=== PATIENT | male | born 1995 | race African-American/Black ===

== ENCOUNTER 2020-04-15 03:03 | Emergency (ER) | payer OTHER ==
[~2020-04-15] VITALS: Ht 188 cm; Wt 86.2 kg
[2020-04-15 03:15] VITALS: BP 131/86
[2020-04-15] MEDS ORDERED: COLACE100 MG ORAL (03:38)
[2020-04-15] MEDS ORDERED: IBUPROFEN600 M1 ORAL (03:38)
[2020-04-15] MEDS ORDERED: ANUSOL-HC25 MG RECTAL (03:38)
[2020-04-15 03:42] VITALS: BP 129/86
--- NOTE | 2020-04-15 04:27 | Emergency Room Report ---
History of Present Illness General Chief Complaint: Male Urogenital Problems Source: Patient Present Illness HPI 24-year-old bisexual -[place] male presents with anal discomfort x1 week. States his anus hurts when he sits down or tries to go to the bathroom. Patient states that the last time he was sexually active was a week and a half ago with anal intercourse. He does not have any concern for sexually transmitted infection and is currently sexually monogamous with 1 partner. He is inconsistent with his condom use. Denies melena, hematochezia, nausea, vomiting, back pain, diarrhea, saddle anesthesia, or other complaints. Denies dysuria, hematuria, penile discharge, or testicular pain. The patient's symptoms were gradual onset, severity was moderate, duration since 7 days Quality: aching Past medical history: Denies Past surgical history: Denies Smoking: ++ Alcohol use: Denies Drug use: Denies Review of systems: CONST: No fevers or chills, No night sweats PULMONARY: No productive cough, No shortness of breath CARDIAC: No chest pain, No palpitations GI: No vomiting, No diarrhea , No melena_or_BRBPR : No dysuria, No hematuria, No discharge NEURO: No new_focal_weakness_or_numbness, No confusion, No vision changes 14 point Review of Systems is otherwise negative except per HPI Physical Exam: GENERAL: Awake_alert_ nontoxic, no acute distress Spo2 98% on RA -normal EYES: Extraocular muscles are intact. Conjunctivae clear. Lids without swelling ENT: External nose and ear normal_in_appearance. Oropharynx clear. Head_ atraumatic, Moist_oral_mucosa NECK: No JVD. No meningismus. No thyromegaly. Supple. Trachea midline RESP: Normal respiratory effort. Symmetric rise. No stridor. Clear_to_auscultation_No_rales_No_wheezes CARDIAC: Regular rate and regular rhytm. No_significant pedal edema. ABDOMEN: Soft. Nondistended. Nontender_No_rebound_or_guarding. Rectal: External nonthrombosed hemorrhoid at the 5 o'clock position. No anal fissure. No internal masses Normal tone and sensation, light brown stool, no melena or blood. Chaperoned with nurse at bedside MSK: Normal muscle tone, without rigidity. Extremities without asymmetric deformity or swelling. SKIN: Warm and dry. No visible cyanosis or pallor NEUROLOGIC: Alert, oriented x3. Motor_and_sensation_grossly_intact. No truncal ataxia. Gait_normal Psych: Normal mood and affect, normal judgment and insight - COORDINATION OF CARE Case was discussed with: Patient Medical Decision Making/Plan: Differential diagnosis: Hemorrhoids versus anal fissure versus anal tear versus mass patient is a well-appearing healthy 24-year-old male here with rectal pain for the past 1 week. Examination is consistent with nonthrombosed uncomplicated external hemorrhoid He denies concern for sexually transmitted infection. Denies empiric testing/treatment. We will discharge with Anusol, Colace, and NSAID. Pertinent results reviewed with the patient. Recommend against anal intercourse until hemorrhoid resolves. I educated the patient on the current treatment plan including the risks, benefits, and alternatives. I also discussed the extent and limitations of the current evaluation. The patient expressed understanding and agreement with plan. I recommended PMD follow-up within 1-2 days. Also advised that the patient re turn to the Emergency Department as soon as possible if they experience any new, persistent, or worsening symptoms. Allergies: Coded Allergies: No Known Allergies (Unverified , 04/15/20) COVID-19 Screening Contact w/high risk pt: No Experienced COVID-19 symptoms?: No COVID-19 Testing performed RECLAIMER: No Nursing Documentation-PMH Past Medical History: No Stated History Physical Exam Vital Signs Date Time Temp Pulse Resp B/P (MAP) Pulse Ox O2 Delivery O2 Flow Rate FiO2 04/15/20 03:05 97.3 96 22 131/86 (101) 04/15/20 03:15 98 Room Air Medical Decision Making Diagnostic Impression: Primary Impression: External hemorrhoids without complication Last Vital Signs Date Time Temp Pulse Resp B/P (MAP) Pulse Ox O2 Delivery O2 Flow Rate FiO2 04/15/20 03:42 97.3 91 16 129/86 98 Room Air Disposition: HOME, SELF-CARE Admit Decision Time: 04:00 Condition: Stable Scripts Ibuprofen* (MOTRIN*) 600 Mg Tablet 600 MG ORAL Q6H PRN for FOR PAIN, #20 TAB 0 Refills Prov: Lubna Bliss D.O. 04/15/20 Docusate Sodium* (COLACE*) 100 Mg Capsule 100 MG ORAL THREE TIMES A DAY for 7 Days, #21 CAP Prov: Lubna Bliss D.O. 04/15/20 Hydrocortisone Acetate* (ANUSOL-HC*) 25 Mg Supp.rect 1 SUPP RECTAL TWICE A DAY for 7 Days, #50 SUPP Prov: Lubna Bliss D.O. 04/15/20 Referrals: [facility]. [facility] Patient Instructions: How to Take a Sitz Bath, Hemorrhoids, [id number] Additional Instructions: Instructions for patient/networking technician: Follow up with your physician in 1-2 days. No anal intercourse until your hemorrhoid resolves. Take sitz bath as you have been doing. Eat high-fiber diet Follow-up with your doctor sooner if your condition requires a more timely clinical reevaluation. Return to the emergency department immediately if you feel that your condition is worsening or if you have any new or concerning symptoms. Review your discharge instructions and take any prescriptions given as instructed. [facility] PROVIDES FREE OR LOW-COST HEALTH SERVICES TO PEOPLE WHO CAN SHOW PROOF THAT THEY LIVE IN [facility]. TO FIND MORE CLINICS PARTNERED WITH [facility] TO PROVIDE SERVICE, PLEASE CALL . Lubna Bliss D.O. Apr 15, 2020 04:27
== END 2020-04-15 03:42 | disposition home or self-care (01) ==
LOC: EMR 03:21
DX: K64.4 Residual hemorrhoidal skin tags (principal)
CPT/HCPCS: 99282

== ENCOUNTER 2020-05-18 11:46 | Emergency (ER) | payer OTHER ==
[~2020-05-18] VITALS: Ht 188 cm; Wt 81.6 kg
[~2020-05-18 11:46] MED LIST: ANUSOL-HC25 MG RECTAL; COLACE100 MG ORAL; IBUPROFEN600 M1 ORAL
[2020-05-18 12:04] VITALS: BP 137/89
[2020-05-18 12:10] VITALS: BP 140/84
[2020-05-18] MEDS ORDERED: LOPERAMIDE2 M1 PO (12:14)
--- NOTE | 2020-05-18 12:14 | Emergency Room Report ---
History of Present Illness General Chief Complaint: Abdominal Pain Source: Patient Present Illness HPI 24-year-old male presents with vague complaints of abdominal cramps, diarrhea ongoing x 1 month, no aggravating or alleviating factors severity is mild, intermittent,no f/c. Patient hasn't had a solid bowel movement. Allergies: Coded Allergies: No Known Allergies (Unverified , 04/15/20) COVID-19 Screening Contact w/high risk pt: No Experienced COVID-19 symptoms?: No COVID-19 Testing performed HOME SERVICE CONSULTANT: No Patient History Past Medical History: see triage record Reviewed Nursing Documentation: PMH: Agreed; PSxH: Agreed Nursing Documentation-PMH Past Medical History: No Stated History Review of Systems All Other Systems: negative except mentioned in HPI Physical Exam Vital Signs Date Time Temp Pulse Resp B/P (MAP) Pulse Ox O2 Delivery O2 Flow Rate FiO2 05/18/20 11:52 98.2 64 18 141/95 (110) 98 Room Air Sp02 EP Interpretation: reviewed, normal General Appearance: well appearing, no apparent distress, alert Head: normocephalic, atraumatic Eyes: bilateral eye PERRL, bilateral eye EOMI ENT: uvula midline, moist mucus membranes Neck: supple, thyroid normal, supple/symm/no masses Respiratory: lungs clear, no respiratory distress, no retraction, no accessory muscle use Cardiovascular #1: normal peripheral pulses, regular rate, rhythm, no edema, no gallop, no murmur Gastrointestinal: non tender, soft, no guarding, no rebound Musculoskeletal: normal inspection Neurologic: alert, oriented x3 Psychiatric: mood/affect normal Skin: no rash, warm/dry Medical Decision Making Diagnostic Impression: Primary Impression: Diarrhea Qualified Codes: A09 - Infectious gastroenteritis and colitis, unspecified ER Course 24-year-old male presents with vague complaints of abdominal cramps, diarrhea x1 month, no fevers no chills, patient is tolerating good p.o., will trial Imodium, considered appendicitis, however no right lower quadrant pain no McBurney's point, no rebound no guarding, did consider diverticulitis Patient given strict abdominal return precautions Will trial Imodium to see if it helps with his diarrhea Disposition home with return precautions Last Vital Signs Date Time Temp Pulse Resp B/P (MAP) Pulse Ox O2 Delivery O2 Flow Rate FiO2 11/4/20 12:04 98.2 79 16 137/89 99 Room Air Disposition: HOME, SELF-CARE Condition: Stable Scripts Loperamide Hcl (LOPERAMIDE) 2 Mg Tablet 2 MG PO QID PRN for Diarrhea, #28 TAB Prov: Michael Cerrato MD 05/18/20 Referrals: [facility] Patient Instructions: Diarrhea, Adult, [id number] Additional Instructions: The patient was provided with discharge instructions, notified to follow-up with a primary care doctor and or specialist in the next 24-48 hours, and to return to the ED if they have worsening of their symptoms. Please note that this report is being documented using DRAGON technology. This can lead to erroneous entry secondary to incorrect interpretation by the dictating instrument. Michael Cerrato MD May 18, 2020 12:14
== END 2020-05-18 12:10 | disposition home or self-care (01) ==
LOC: EMR 12:10
DX: A09 Infectious gastroenteritis and colitis, unspecified (principal)
CPT/HCPCS: 99282